=== PATIENT | male | born 1985 | race Caucasian/White ===

== ENCOUNTER 2020-09-08 21:50 | Emergency (ER) | payer BC, OTHER ==
[~2020-09-08] VITALS: Ht 177.8 cm; Wt 178.7 kg
[2020-09-08 23:16] LABS: Basophils # (auto) 0 10 ^3/uL (0-0.2); Basophils % (auto) 0.1 % (0.0-2.0); Eosinophils # (auto) 0.1 10 ^3/uL (0-0.8); Hematocrit 45.8 % (41.0-53.0); Hemoglobin 15.3 g/dL (13.5-17.5); Lymphocytes # (auto) 2.4 10 ^3/uL (0.4-5.4); Lymphocytes % (auto) 19.5 % (10.0-50.0); Mean Corpuscular Hemoglobin 29.6 pg (28.0-32.0); Mean Corpuscular Hgb Conc. 33.3 g/dL (32.0-36.0); Mean Corpuscular Volume 88.9 fL (80.0-100.0); Monocytes # (auto) 1.1 10 ^3/uL (0-1.3); Monocytes % (auto) 9.5 % (0.0-12.0); Neutrophils # (auto) 8.4 10 ^3/uL (1.6-8.6); Neutrophils % (auto) 69.9 % (37.0-80.0); Platelet Count (auto) 343 10^3/uL (140-450); Red Blood Cells 5.16 10^6/uL (4.5-5.90); Red Cell Distribution Width 13.4 % (11.8-14.3)
[2020-09-08 23:32] LABS: Calcium 9.2 mg/dL (8.5-10.1)
[2020-09-08 23:35] LABS: BUN/Creatinine Ratio 10.8
[2020-09-08 23:42] LABS: Bilirubin, Total 0.4 mg/dL (0.2-1.0); Total Protein 8.4 g/dL (6.4-8.2)
[2020-09-09 01:28] VITALS: BP 129/81
== END 2020-09-09 06:19 | disposition home or self-care (01) ==
LOC: ER 21:50
DX: R06.02 Shortness of breath (principal); R19.7 Diarrhea, unspecified; R11.0 Nausea; R07.0 Pain in throat; R50.9 Fever, unspecified; R53.1 Weakness; R10.9 Unspecified abdominal pain; Z20.828 Contact with and (suspected) exposure to other viral communicable diseases
CPT/HCPCS: 36415; 71045; 80053; 85025